=== PATIENT | female | born 1970 | race Caucasian/White ===

== ENCOUNTER 2024-01-09 19:16 | Emergency (ER) | payer OTHER, SELFPAY ==
[2024-01-09 19:18] VITALS: BP 126/83
[2024-01-09 19:40] VITALS: BP 128/81
[2024-01-09 19:52] LABS: % Basophils 0.7 % (0-2); % Eosinophils 1.5 % (0-6); % Immature Granulocytes 0.4 % (0-0.5); % Lymphocytes 23.8 % (20.5-51.1); % Monocytes 6.9 % (1.7-9.3); % Neutrophils 66.7 % (42.2-75.2); Absolute Eosinophils 0.1 10^3/uL (0-0.7); Absolute Lymphocytes 1.3 10^3/uL (1.2-3.4); Absolute Monocytes 0.4 10^3/uL (0.1-0.6); Absolute Neutrophils 3.7 10^3/uL (1.4-6.5); Hematocrit 34.2 % (37.0-47.0); Hemoglobin 12.2 g/dL (12.0-16.0); Mean Corp Hgb Conc. 35.7 g/dL (33.0-37.0); Mean Corpuscular Hgb 31.3 pg (27.0-31.0); Mean Corpuscular Volume 87.7 fL (81.0-99.0); Mean Platelet Volume 11.2 fL (7.4-10.4); Nucleated Red Blood Cells % 0 %; Platelet Count 184 10^3/uL (130-400); Red Cell Dist. Width 12.6 % (11.5-14.5); White Blood Cell Count 5.5 10^3/uL (4.8-10.8)
[2024-01-09 20:00] VITALS: BP 133/76
[2024-01-09 20:17] LABS: ALT (SGPT) 19 U/L (0-35); AST (SGOT) 29 U/L (14-36); Albumin 4.4 g/dl (3.5-5.0); Alkaline Phosphatase 56 U/L (38-126); Blood Urea Nitrogen 11 mg/dl (7-17); Calcium 9.8 mg/dl (8.4-10.2); Carbon Dioxide 24 mmol/L (22-30); Chloride 107 mmol/L (98-107); Glucose 104 mg/dl (70-99); Lipase 170 U/L (23-300); Potassium 4.2 mmol/L (3.5-5.1); Sodium 138 mmol/L (135-145); Total Protein 6.7 g/dl (6.3-8.2); eGFR > 60.00
[2024-01-09] MEDS: TORADOL 30 MG IV (20:19)
[2024-01-09] MEDS: NSS 1000 IV (20:20)
[2024-01-09] MEDS: ZOFRAN 4 MG IV ×2 (20:20→21:03)
--- NOTE | 2024-01-09 20:23 | ED.GENMED ---
History of Present Illness
General
Chief Complaint: Abdominal Pain
Source: patient
Time Seen by Provider: 01/09/24 19:37
History of Present Illness
History of Present Illness:
53-year-old female with past medical history of bowel obstruction, anxiety and pancreatitis presenting to the emergency department for evaluation of abdominal pain that started this past Thursday, felt similar to previous episode of pancreatitis so
changed her diet to a bland diet Thursday, worse pain today and unable to eat prompting her to come to the ER for further evaluation. She notes associated nausea but no vomiting. Denies any fevers or infectious states it was believed to be stress
which caused her last episode of pancreatitis. She notes no history of known gallstones and still has her gallbladder. Denies any alcohol use or any history of hypertriglyceridemia. Denies any trauma. No other concerns presently.
Past History
Past History
ED Past Medical History: Psychiatric and Other (Constipation arthritis, anxiety); Negative Asthma, HTN, Hypercholesterolemia or NIDDM
ED Past Surgical History: , Gynecological (Hysterectomy, L ovary removed) and Other (Adhesions)
Social History
Tobacco: Former smoker
Alcohol: None
Drug: None
Personal:
Living: other (Significant other)
Employment: Employed
Review of Systems
Review of Systems
All Other Systems: ROS reviewed and negative except as documented in HPI and ROS
Phy Exam
Physical Exam
Physical Exam:
GENERAL: Alert , Appears uncomfortable
EYE: clear conjunctiva b/l
HEAD: NCAT
ENT: o/p clr, mmm.
CARDIAC: Regular rate and rhythm .
LUNGS: Clear breath sounds bilaterally, no acute respiratory distress, no wheezes/rales/rhonchi
ABDOMEN: Soft, tenderness within the epigastrium and right upper quadrant, no r/g, no cvat, negative Kwon sign, no tenderness at McBurney's point
NEUROLOGICAL: Alert and oriented
SKIN: Warm and dry, skin intact.
MUSCULOSKELETAL: well perfused.
PSYCH: Normal and appropriate interaction.
Scores
Heart Failure Risk
Heart Failure Risk Score: Not Applicable
Heart Score for Chest Pain Patients
STEMI patient?: Not applicable
Withdrawal Assessment of Alcohol
Withdrawal Assessment Completed?: Not applicable
Course
Orders/Labs/Results
Orders:
Orders
01/09/24 19:40
Urinalysis Reflex To Culture Urgent
Date Specimen was Collected: 01/09/24
Time Specimen was Collected: 19:41
01/09/24 19:43
Complete Blood Count/With Diff Urgent
Comprehensive Metabolic Panel Urgent
Lipase Urgent
01/09/24 20:16
0.9% Sodium Chloride 1000 ml [Nss] 1,000 ml IV BOLUS
Ketorolac [Toradol] 30 mg IV NOW STA
Ondansetron Injectable [Zofran] 4 mg IV NOW STA
US Abdomen Complete/Upper Urgent
Comment:
Reason For Exam: RUQ pain
01/09/24 20:59
Morphine Sulfate 4 mg IV NOW STA
Ondansetron Injectable [Zofran] 4 mg IV NOW STA
01/09/24 21:00
CT Abd/pelvis W Iv Cont Urgent
Comment:
Reason For Exam: upper abd pain, hx pancreatitis
Abnormal Lab Results
01/09/24
19:43
RBC 3.90 L 10^6/uL
(4.20-5.40)
Hct 34.2 L %
(37.0-47.0)
MCH 31.3 H pg
(27.0-31.0)
MPV 11.2 H fL
(7.4-10.4)
Glucose 104 H mg/dl
(70-99)
01/09/24 19:43
01/09/24 19:43
Vital Signs
Initial and Last Documented VS:
Initial Vital Signs
Temp Pulse Resp BP Pulse Ox
98.0 F 67 16 126/83 100
01/09/24 19:18 01/09/24 19:18 01/09/24 19:18 01/09/24 19:18 01/09/24 19:18
Last Documented Vital Signs
Temp Pulse Resp BP Pulse Ox
98.0 F 68 16 133/76 99
01/09/24 19:18 01/09/24 20:15 01/09/24 20:15 01/09/24 20:00 01/09/24 20:15
MDM/Problems Addressed
Differential Diagnosis Includes:
Pancreatitis, cholecystitis, bowel obstruction, GERD/gastritis, appendicitis
MDM/Problems Addressed:
53-year-old female presenting to the emergency department for evaluation of right upper quadrant abdominal pain since Thursday, worse today accompanied with nausea and inability to tolerate p.o. Appears quite uncomfortable on exam here. Will treat
with Toradol and Zofran as well as IV fluids. Labs ordered. Will also obtain an ultrasound of the abdomen. Reassessment following.
Chronic conditions affecting care: Other (Previous episode of pancreatitis)
*Radiology
Radiology exam reviewed: radiology read reviewed
*Pulse Oximetry
Patient hypoxic: no
*Critical Care Note
Total Time (30-74mins, 75-104mins- exclusive of procedures): Not Applicable
Data Reviewed
Review of Other/Old Records Reveals: Labs, Records and Discharge Summary
Source: patient and records
Comment
Comment:
Patient had minimal pain relief with toradol. 4mg morphine ordered.
On re-eval after morphine, patient noted much improved pain
Patient Management
Escalation/DeEscalation of care consider admission/obs:
Patient CT is not show any evidence for acute abdominal pathology. Ultrasound was also performed and shows no evidence for cholelithiasis or acute cholecystitis. Common bile duct measures 4 mm. There is a 1.3 cm cyst within the liver and
otherwise unremarkable exam.
Patient continues to feel better and feels comfortable going home. Advised close follow up with PCP. Zofran and Omeprazone Rx sent to pharmacy.
ED Attending Note
-
Portions of this chart may have been created with voice recognition software.� Occasional wrong word or��sound alike� substitutions may have occurred due to the inherent limitations of voice recognition software.
Discharge Plan
Departure
Patient Disposition: Home (Routine Discharge)
Date of Disposition: 01/09/24
Time of Disposition: 23:14
Patient with high blood pressure during this ER visit?: No
Discharge Problem:
Abdominal pain
Instructions: Abdominal Pain
Prescriptions:
New
ondansetron 4 mg tablet,disintegrating
4 mg PO Q8H PRN (Reason: nausea and vomiting) Qty: 8 0RF
omeprazole 20 mg capsule,delayed release(DR/EC)
20 mg PO BID Qty: 14 0RF
No Action
alprazolam 0.5 mg tablet
0.5 mg PO TIDPRN PRN (Reason: anxiety)
duloxetine 60 mg Capsule,Delayed Release(Dr/Ec)
60 mg PO DAILY
Medical Marijuana
2 puff inhalation PRN PRN (Reason: pain,ptsd)
Patient Comments:
02/04/22 Per patient she uses flower and takes 2 puffs as she needs it throughout the day. Uses [facility] [place]
Referrals:
NONE,* [Family Provider] -
Interventions
Interventions:
*Risk Screen - Suicide Last Done: 01/09/24 19:18
*General Assessment Last Done: 01/09/24 19:18
*Neglect/Abuse Screening Last Done: 01/09/24 19:18
ED- Fall Risk Assessment Last Done: 01/09/24 19:18
*ED COVID-19 Vaccine History Last Done: 01/09/24 19:18
*Nursing Disposition Last Done: 01/09/24 23:16
RE-Uekrpl-Qoqysvmxhr Assessment Last Done: 01/09/24 19:35
Discharge Date and Time
Print Language: [id number]
[2024-01-09] MEDS: MORPHINE SULFATE 4 MG IV (21:03)
== END 2024-01-09 23:17 | disposition home or self-care (01) ==
LOC: EMR 19:16
PROVIDERS: Physician Assistant Medical; EMERGENCY PHYSICIAN Student in an Organized Health Care Education/Training Program
DX: R10.11 Right upper quadrant pain (principal)
CPT/HCPCS: 99285; 96374; 96375 ×2; 96361; 96376; 74177; 76700; 80053; 83690; 85025; Q9967

== ENCOUNTER → 2024-03-24 13:04 | Outpatient (REF) | payer OTHER, SELFPAY | LOC: HWRAD 13:04 | PROVIDERS: ATTENDING PHYSICIAN Nurse Practitioner Family | DX: Z13.820 Encounter for screening for osteoporosis (principal) | CPT/HCPCS: 77080 ==